=== PATIENT | male | born 1970 | race Caucasian/White ===

== ENCOUNTER 2017-08-01 17:53 | Emergency (ER) | payer MEDICAID, OTHER ==
[~2017-08-01] VITALS: Ht 170.2 cm; Wt 80.0 kg
[~2017-08-01 17:53] MED LIST: ASPI-664 PO; GLIP-95 PO; METF500T4 PO
[2017-08-01 18:00] VITALS: Ht 170.2 cm; Wt 80.0 kg
[2017-08-01] MEDS ORDERED: SOD CHLORIDE 0.9% 1,000 ML IV STA (18:05)
[2017-08-01] MEDS ORDERED: ONDANSETRON 4 MG INJ IV ONE (18:30)
[2017-08-01] MEDS ORDERED: morphine 2 MG INJ IV ONE (18:30)
[2017-08-01] MEDS ORDERED: LANT3I SC (18:30)
[2017-08-01] MEDS ORDERED: METF1000 PO (18:31)
[2017-08-01] MEDS ORDERED: LISI-313 PO (18:32)
[2017-08-01] MEDS ORDERED: IOHEXOL 300MG/ML 150 ML BTL ONE (18:32)
[2017-08-01] MEDS ORDERED: SOD CHLORIDE 0.9% 100 ML ONE (18:32)
[2017-08-01] MEDS ORDERED: GLIP-95 PO (18:33)
[2017-08-01] MEDS ORDERED: SIMV20TA PO (18:33)
[2017-08-01 18:41] LABS: BASOPHILS % 0.3 % (0.0-2.0); EOSINOPHILS # 0.1 10^3/ul (0.0-0.5); EOSINOPHILS % 2.4 % (0.0-7.0); HEMATOCRIT 37.7 % (42.0-52.0); LYMPHOCYTES # 1.5 10^3/ul (0.8-2.9); LYMPHOCYTES % 25.9 % (15.0-51.0); MEAN CORPUSCULAR HEMOGLOBIN 30.2 pg (29.0-33.0); MEAN CORPUSCULAR HGB CONC 34.5 g/dl (32.0-37.0); MEAN CORPUSCULAR VOLUME 87.7 fl (82.0-101.0); MONOCYTE # 0.5 10^3/ul (0.3-0.9); MONOCYTES % 8.1 % (0.0-11.0); NEUTROPHIL # 3.7 10^3/ul (1.6-7.5); NEUTROPHILS % 63.1 % (39.0-77.0); PLATELET COUNT 316 10^3/UL (140-415); RED CELL DISTRIBUTION WIDTH 12.5 % (11.5-14.5); WHITE BLOOD COUNT 5.8 10^3/ul (4.8-10.8)
--- NOTE | 2017-08-01 18:57 | RADRPT ---
PROCEDURE: XR Hip. CLINICAL INDICATION: Pain. TECHNIQUE: Two views of the right hip. COMPARISON: None available. FINDINGS: No fracture or dislocation is identified. The joint spaces are preserved. There is no significant soft tissue swelling. IMPRESSION: 1. No fracture or dislocation of the right hip. RPTAT: HTAR .Jacek Lees MD, Date Time Electronically viewed and signed by .Jacek Lees MD, on 08/01/2017 18:57 .R/
[2017-08-01 18:58] LABS: PROTIME 13.2 Sec (12.2-14.2)
[2017-08-01 18:59] LABS: ALANINE AMINOTRANSFERASE 38 IU/L (13-69); ALBUMIN 4.5 g/dl (3.3-4.9); ALKALINE PHOSPHATASE 132 IU/L (42-121); ANION GAP 17 (8-16); ASPARTATE AMINO TRANSFERASE 21 IU/L (15-46); BILIRUBIN,INDIRECT 0.2 mg/dl (0-1.1); BILIRUBIN,TOTAL 0.2 mg/dl (0.2-1.3); BLOOD UREA NITROGEN 18 mg/dl (7-20); CARBON DIOXIDE 27 mmol/L (21-31); CHLORIDE 100 mmol/L (97-110); CREATININE 0.91 mg/dl (0.61-1.24); GLUCOSE 346 mg/dl (70-220); PARTIAL THROMBOPLASTIN TIME 33.5 Sec (25.0-35.0); POTASSIUM 4.3 mmol/L (3.5-5.1); SODIUM 140 mmol/L (135-144); TOTAL PROTEIN 7.8 g/dl (6.1-8.1)
[2017-08-01 19:00] LABS: ETHANOL < 10.0 mg/dl
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
[2017-08-01] MEDS ORDERED: HYDR-902 PO (20:36)
[2017-08-01] MEDS ORDERED: IBUP-1542 PO (20:36)
[2017-08-01 20:44] VITALS: BP 139/77; PULSE 79; RESP 20
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
== END 2017-08-01 21:00 | disposition home or self-care (01) ==
LOC: E/R 17:53
DX: S19.9XXA Unspecified injury of neck, initial encounter (principal); I10 Essential (primary) hypertension; E11.9 Type 2 diabetes mellitus without complications; S80.211A Abrasion, right knee, initial encounter; S09.90XA Unspecified injury of head, initial encounter; R51 Headache; V49.59XA Passenger injured in collision with other motor vehicles in traffic accident, initial encounter; Z79.4 Long term (current) use of insulin; Z79.84 Long term (current) use of oral hypoglycemic drugs
CPT/HCPCS: 70450; 71260; 72125; 73510; 74177; 80048; 80076; 80306; 85025; 85610; 85730; 86850; 86900; 86901; 96374; 96375; J2270; J2405; J7030; Q9967; Z7502; Z7610